=== PATIENT | female | born 2000 | race Caucasian/White ===

== ENCOUNTER 2018-06-13 17:56 | Outpatient (CLI) | payer MEDICAID ==
[2018-06-13 18:31] LABS: APPEARANCE,URINE CLOUDY; BILIRUBIN,URINE NEGATIVE (NEGATIVE); COLOR,URINE YELLOW; GLUCOSE, URINE NEGATIVE (NEGATIVE); KETONES,URINE NEGATIVE (NEGATIVE); LEUKOCYTE ESTERASE,URINE LARGE (NEGATIVE); NITRITE,URINE NEGATIVE (NEGATIVE); PROTEIN,URINE NEGATIVE (NEGATIVE); URINE SPECIFIC GRAVITY 1.018
[2018-06-13 18:47] LABS: URINE AMPHETAMINES SCREEN NEGATIVE; URINE BARBITURATES SCREEN NEGATIVE; URINE BENZODIAZEPINES SCREEN NEGATIVE; URINE COCAINE SCREEN NEGATIVE; URINE MARIJUANA (THC) SCREEN NEGATIVE; URINE METHADONE SCREEN NEGATIVE; URINE PHENCYCLIDINE SCREEN NEGATIVE
--- NOTE | 2018-06-13 19:02 | Non Stress Test Report ---
Non Stress Test Datetime Report Generated by CPN: 06/13/2018 19:02 DEMOGRAPHIC EGA NST: 39.4 INDICATION Indication for Study: Ordered by Provider MONITORING Monitor Explained: Monitor Explained; Test Explained; Patient Verbalized Understanding Time on Monitor: 06/13/2018 18:20 Time off Monitor: 06/13/2018 19:01 NST Duration: 41 NST INTERVENTIONS NST Interventions: PO Hydration; Reposition Patient Physician Notified NST: Dr. Idris BABY A: [id number] BABY A Movement : Present Contraction Frequency : rare Contraction Frequency : 0 FHR Baseline : 125 Accelerations : 15X15 Decelerations : None Variability : Moderate 6-25bpm NST Review: Meets Criteria for Reactive NST NST Review and Verified By : Vonnie Holguin RNC NST Results: Reactive NST COMMENTS NST Comments: Provider on unit, reviewed strip NST REPORT Report Trigger: Send Report
== END 2018-06-13 19:21 | disposition home or self-care (01) ==
LOC: LC 17:56
PROVIDERS: ATTEND Obstetrics & Gynecology
PROC: 4A1HXCZ Monitoring of Products of Conception, Cardiac Rate, External Approach (ICD-10-PCS; principal; 2018-06-13)
DX: O47.1 False labor at or after 37 completed weeks of gestation (principal); Z3A.39 39 weeks gestation of pregnancy
CPT/HCPCS: 59025; 80307; 81005

== ENCOUNTER 2018-06-20 11:25 | Outpatient (CLI) | payer MEDICAID | END 2018-06-20 12:26 | disposition home or self-care (01) | LOC: LC 11:25 | PROVIDERS: ATTEND Student in an Organized Health Care Education/Training Program | PROC: 4A1HXCZ Monitoring of Products of Conception, Cardiac Rate, External Approach (ICD-10-PCS; principal; 2018-06-20) | DX: O47.1 False labor at or after 37 completed weeks of gestation (principal); Z3A.40 40 weeks gestation of pregnancy | CPT/HCPCS: 59025 ==

== ENCOUNTER 2018-06-22 12:26 | Outpatient (CLI) | payer MEDICAID ==
--- NOTE | 2018-06-22 13:12 | Non Stress Test Report ---
Non Stress Test Datetime Report Generated by CPN: 06/22/2018 13:12 DEMOGRAPHIC EGA NST: 40.6 EGA NST: 40.4 INDICATION Indication for Study: Ordered by Provider Indication for Study: Ordered by Provider Indication for Study (NST) Other: lc MONITORING Monitor Explained: Monitor Explained; Test Explained; Patient Verbalized Understanding Monitor Explained: Monitor Explained; Test Explained; Patient Verbalized Understanding Time on Monitor: 06/22/2018 12:35 Time on Monitor: 06/20/2018 11:33 Time off Monitor: 06/22/2018 13:11 Time off Monitor: 06/20/2018 12:16 NST Duration: 36 NST Duration: 43 NST INTERVENTIONS NST Interventions: PO Hydration NST Interventions: PO Hydration Physician Notified NST: Dr Shaker Physician Notified NST: Carlos Reece CNM BABY A: [id number] BABY A Movement : Present Movement : Present Contraction Frequency : 0 Contraction Frequency : irregular FHR Baseline : 115 FHR Baseline : 125 Accelerations : 15X15 Accelerations : 15X15 Decelerations : None Decelerations : None Variability : Moderate 6-25bpm Variability : Moderate 6-25bpm NST Review: Meets Criteria for Reactive NST NST Review: Meets Criteria for Reactive NST NST Review and Verified By : Vonnie Holguin RNC NST Review and Verified By : KALEE Cope NST Results: Reactive NST Results: Reactive NST REPORT Report Trigger: Send Report
== END 2018-06-22 14:36 | disposition home or self-care (01) ==
LOC: LC 12:26
PROVIDERS: ATTEND Obstetrics & Gynecology
PROC: 4A1HXCZ Monitoring of Products of Conception, Cardiac Rate, External Approach (ICD-10-PCS; principal; 2018-06-22)
DX: Z34.93 Encounter for supervision of normal pregnancy, unspecified, third trimester (principal)
CPT/HCPCS: 59025

== ENCOUNTER 2018-06-23 03:40 | Inpatient (IN) | payer MEDICAID ==
[2018-06-23] MEDS ORDERED: MISOPROSTOL 0.2 MG TABLET ONE (03:57)
[2018-06-23] MEDS ORDERED: LIDOCAINE 1% INJ-PF (10 MG/ML) 30 ML SDV ONE (03:57)
[2018-06-23] MEDS ORDERED: OXYTOCIN/NORMAL SALINE 20 UNIT/1,000 ML RTUINJ ONE (03:58)
[2018-06-23] MEDS ORDERED: RINGERS SOLUTION,LACTATED 1,000 ML IV PRN (04:03)
[2018-06-23] MEDS ORDERED: FENTANYL CITRATE INJ/PF 100 MCG/2 ML AMPUL ONE (04:35)
[2018-06-23 05:26] LABS: HEMATOCRIT 36.2 % (36.0-47.0); HEMOGLOBIN 12.3 g/dL (12.0-15.5); MEAN CORPUSCULAR HEMOGLOBIN 28.5 pg (27.0-33.4); MEAN CORPUSCULAR VOLUME 84 fl (80-97); PLATELET COUNT 165 10^3/uL (150-450); RED BLOOD COUNT 4.31 10^6/uL (3.72-5.28); RED CELL DISTRIBUTION WIDTH 13.5 % (11.5-14.0); WHITE BLOOD COUNT 22.6 10^3/uL (4.0-10.5)
--- NOTE | 2018-06-23 05:36 | HISTORY AND PHYSICAL E ---
History and Physical NAME: LOYD DELANEY : 2000 AGE: 17Y ADMITTED: 06/23/2018 ROOM: LR200 HISTORY OF PRESENT ILLNESS: A 17-year-old, 1, at 41 weeks gestational age who presented to triage with the chief complaint of contractions, rupture of membranes, and onset of labor. Upon examination, she was completely dilated and she was moved to a labor and delivery bed. She reports good movement. PAST OBSTETRICAL HISTORY: 1 current. No high-risk indications for her. PAST MEDICAL HISTORY: None. PAST SURGICAL HISTORY: None. MEDICATIONS: Just vitamins. ALLERGIES: THE PATIENT IS ALLERGIC TO PENICILLIN. SOCIAL HISTORY: No smoking, drinking, or illicit drug use. PHYSICAL EXAMINATION: VITAL SIGNS: Stable. Afebrile, normotensive, not tachy initially on presentation. GENERAL: The patient awake and alert, oriented x3, in moderate distress due to labor. CARDIAC: Regular rate and rhythm. LUNGS: Clear to auscultation bilaterally. ABDOMEN: Gravid. VAGINAL EXAM: Completely dilated, completely effaced, and +1 to +2 station. EXTREMITIES: DTRs are 1+. No clonus. No cyanosis. No edema. 2+ pulses bilaterally. ASSESSMENT AND PLAN: A 17-year-old, 1, at 41 weeks in labor, status post spontaneous rupture of membranes. 1. Admit to Labor and Delivery. 2. Anticipate spontaneous vaginal delivery. DICTATING PHYSICIAN: Nanette Huizar MD [id number] PHY#: [id number] ID: [id number] JOB#: [id number] ACCT: [id number] cc:Nanette Huizar >
--- NOTE | 2018-06-23 05:46 | OPERATIVE REPORT E ---
Operative Report NAME: LOYD DELANEY : 2000 AGE: 17Y DATE OF SURGERY: 06/23/2018 ROOM: LR200 OPERATION: Normal spontaneous vaginal delivery. SURGEON: Nanette Huizar COMPLICATIONS: None. ESTIMATED BLOOD LOSS: 350 FINDINGS: Viable male in a vertex cephalic presentation, Apgars 8 and 9, weight 6 pounds 5 ounces. PROCEDURE: The patient had an uneventful normal spontaneous vaginal delivery of a full-term viable male . She had a right focal tear, then first-degree, that was reapproximated with 3-[address]-1, on the left periurethral tear that was reapproximated with 3-0 Vicryl on an SH. Reapproximation was performed successfully and there was no bleeding from those repair sites. Lochia was minimal, with a firm fundus at the end. There was a nuchal cord x1 as well. The patient tolerated the procedure well. Sponge, lap, and needle counts were correct x2. DICTATING PHYSICIAN: Nanette Huizar MD [id number] PHY#: [id number] ID: [id number] JOB#: [id number] ACCT: [id number] cc:Nanette Huizar >
[2018-06-23 05:50] LABS: ABSOLUTE LYMPHOCYTES# (MANUAL) 1.1 10^3/uL (0.5-4.7); ABSOLUTE MONOCYTES # (MANUAL) 0.9 10^3/uL (0.1-1.4); ABSOLUTE NEUTROPHILS# (MANUAL) 20.6 10^3/uL (1.7-8.2); BASOPHILS % (MANUAL) 0 % (0-2); EOSINOPHILS % (MANUAL) 0 % (0-6); LYMPHOCYTES % (MANUAL) 2 % (13-45); MONOCYTES % (MANUAL) 4 % (3-13); SEGMENTED NEUTROPHILS % (MAN) 91 % (42-78); TOTAL CELLS COUNTED 100
[2018-06-23 05:57] LABS: BURR CELLS SLIGHT; PLATELET COMMENT ADEQUATE; POIKILOCYTOSIS 1+; ROULEAUX SLIGHT; TEAR DROP CELLS SLIGHT
[2018-06-23 06:39] LABS: APPEARANCE,URINE TURBID; BILIRUBIN,URINE NEGATIVE (NEGATIVE); COLOR,URINE RED; GLUCOSE, URINE 50 mg/dL (NEGATIVE); KETONES,URINE 20 mg/dL (NEGATIVE); LEUKOCYTE ESTERASE,URINE NEGATIVE (NEGATIVE); NITRITE,URINE NEGATIVE (NEGATIVE); PROTEIN,URINE >=500 mg/dL (NEGATIVE); URINE SPECIFIC GRAVITY 1.023; UROBILINOGEN,URINE NEGATIVE mg/dL (<2.0)
[2018-06-23 07:15] LABS: URINE AMPHETAMINES SCREEN NEGATIVE; URINE BARBITURATES SCREEN NEGATIVE; URINE BENZODIAZEPINES SCREEN NEGATIVE; URINE COCAINE SCREEN NEGATIVE; URINE MARIJUANA (THC) SCREEN NEGATIVE; URINE METHADONE SCREEN NEGATIVE; URINE PHENCYCLIDINE SCREEN NEGATIVE
[2018-06-23] MEDS ORDERED: DIBUCAINE 1% OINTMENT 28 GM TP PRN (10:04)
[2018-06-23] MEDS ORDERED: MEASLES,MUMPS&RUBELLA VACC/PF 0.5 ML VIAL SUBCUT PRN (10:04)
[2018-06-23] MEDS ORDERED: NA PHOS,M-B/NA PHOS,DI-BA (ADULT) 133 ML ENEMA PR PRN (10:04)
[2018-06-23] MEDS ORDERED: PROMETHAZINE HCL 25 MG SUPP.RECT PR PRN (10:04)
[2018-06-23] MEDS ORDERED: PROMETHAZINE HCL INJ 25 MG/1 ML VIAL IV PRN (10:04)
[2018-06-23] MEDS ORDERED: ZOLPIDEM TARTRATE 5 MG TABLET PO PRN (10:04)
[2018-06-23] MEDS ORDERED: DIPHENHYDRAMINE HCL 25 MG CAPSULE PO PRN (10:04)
[2018-06-23] MEDS ORDERED: ACETAMINOPHEN 650 MG SUPP.RECT PR PRN (10:04)
[2018-06-23] MEDS ORDERED: DIPH/PERTUSS(ACELL)/TETANUS VAC/PF 0.5 ML SYR (>=10YO) IM PRN (10:04)
[2018-06-23] MEDS ORDERED: BENZOCAINE/MENTHOL AEROSOL SPRAY 56 ML TOP PRN (10:04)
[2018-06-23] MEDS ORDERED: GLYCERIN/WITCH HAZEL LEAF 1 EACH MED..PAD TP PRN (10:04)
[2018-06-23] MEDS ORDERED: PSEUDOEPHEDRINE HCL 30 MG TABLET PO PRN (10:04)
[2018-06-23] MEDS ORDERED: MAGNESIUM HYDROXIDE SUSP 30 ML UDCUP PO PRN (10:04)
[2018-06-23] MEDS ORDERED: PROMETHAZINE HCL 25 MG TABLET PO PRN (10:04)
[2018-06-23] MEDS ORDERED: ACETAMINOPHEN WITH CODEINE #3 TABLET PO PRN ×2 (10:04)
--- NOTE | 2018-06-23 10:26 | PDOC PROGRESS REPORT ---
Subjective-OB Progress Note for:: 06/23/18 Subjective: Doing well, no c/o, family at [place], taking care of baby, bottle feeding Physical Exam (OB) Vital Signs: Temp Pulse Resp BP Pulse Ox 98.3 F 79 18 132/76 H 97 06/23/18 06:41 06/23/18 06:41 06/23/18 06:41 06/23/18 07:04 06/23/18 06:41 Intake & Output 06/22/18 06/23/18 06/24/18 06:59 06:59 06:59 Intake Total 1000 Balance 1000 Weight 81.6 kg - PIH/Pre-Eclampsia Clonus: Negative Headache: Absent Epigastric Pain: No Visual Changes: No - Lochia Lochia Amount: Small 10-25 ml Lochia Color: Rubra/Red - Abdomen Description: Tender, Soft Hernia Present: No Fundal Description: Firm, Midline Fundal Height: u/u - u/2 Objective-Diagnostic Laboratory: 06/23/18 05:13 06/23/18 06/23/18 06/23/18 05:13 05:13 06:16 WBC 22.6 H RBC 4.31 Hgb 12.3 Hct 36.2 MCV 84 MCH 28.5 MCHC 34.0 RDW 13.5 Plt Count 165 Seg Neutrophils % Not Reportable Lymphocytes % Not Reportable Monocytes % Not Reportable Eosinophils % Not Reportable Basophils % Not Reportable Absolute Neutrophils Not Reportable Absolute Lymphocytes Not Reportable Absolute Monocytes Not Reportable Absolute Eosinophils Not Reportable Absolute Basophils Not Reportable Urine Color RED Urine Appearance TURBID Urine pH 6.0 Ur Specific Bradshaw 1.023 Urine Protein >=500 H Urine Glucose (UA) 50 H Urine Ketones 20 H Urine Blood LARGE H Urine Nitrite NEGATIVE Ur Leukocyte Esterase NEGATIVE Blood Type B POSITIVE Antibody Screen NEGATIVE Assessment and Plan(PN) - Assessment and Plan (1) Normal vaginal delivery Is this a current diagnosis for this admission?: Yes - Time Spent with Patient Time with patient: Less than 15 minutes Medications reviewed and adjusted accordingly: Yes - Disposition Anticipated Discharge: Home Within: within 24 hours
[2018-06-23] MEDS: IBUPROFEN 800 MG TABLET PO SCH ×2 (13:19→22:06)
[2018-06-23] MEDS: DOCUSATE SODIUM 100 MG CAPSULE PO SCH (17:20)
[2018-06-23] MEDS: FERROUS SULFATE 325 MG TABLET PO SCH (17:20)
[2018-06-23] MEDS: FAMOTIDINE 20 MG TABLET PO SCH (22:06)
[2018-06-24] MEDS: IBUPROFEN 800 MG TABLET PO SCH ×3 (06:01→21:19)
[2018-06-24 07:13] LABS: HEMATOCRIT 33.5 % (36.0-47.0); HEMOGLOBIN 11.3 g/dL (12.0-15.5); MEAN CORPUSCULAR HEMOGLOBIN 28.5 pg (27.0-33.4); MEAN CORPUSCULAR HGB CONC 33.7 g/dL (32.0-36.0); MEAN CORPUSCULAR VOLUME 85 fl (80-97); PLATELET COUNT 150 10^3/uL (150-450); RED BLOOD COUNT 3.96 10^6/uL (3.72-5.28); RED CELL DISTRIBUTION WIDTH 13.5 % (11.5-14.0); WHITE BLOOD COUNT 12.3 10^3/uL (4.0-10.5)
[2018-06-24] MEDS: SENNOSIDES/DOCUSATE 8.6-50 MG 1 EACH TABLET PO SCH (10:06)
[2018-06-24] MEDS: FAMOTIDINE 20 MG TABLET PO SCH ×2 (10:06→21:19)
[2018-06-24] MEDS: DOCUSATE SODIUM 100 MG CAPSULE PO SCH ×2 (10:07→17:19)
[2018-06-24] MEDS: FERROUS SULFATE 325 MG TABLET PO SCH ×2 (10:07→17:19)
[2018-06-24] MEDS: PRENATAL VITAMIN W DHA CAPSULE PO SCH (10:07)
--- NOTE | 2018-06-24 13:28 | PDOC PROGRESS REPORT ---
Subjective-OB Progress Note for:: 06/24/18 Subjective: reports bleeding slowing, pain controlled with current meds, denies needs Physical Exam (OB) Vital Signs: Temp Pulse Resp BP Pulse Ox 97.5 F 63 15 132/83 H 98 06/24/18 08:10 06/24/18 08:10 06/24/18 08:10 06/24/18 08:10 06/24/18 08:10 Intake & Output 06/23/18 06/24/18 06/25/18 06:59 06:59 06:59 Intake Total 1000 350 Balance 1000 350 Weight 81.6 kg - Abdomen Description: Soft, Round Hernia Present: Yes Fundal Description: Firm, Midline Fundal Height: u/u - u/2 - Abdominal Distension: No distension Tenderness: Nontender - Extremities Lower extremities: Colton's sign - neg Calf: Normal, Nontender Objective-Diagnostic Laboratory: 06/24/18 06:34 06/24/18 06:34 WBC 12.3 H RBC 3.96 Hgb 11.3 L Hct 33.5 L MCV 85 MCH 28.5 MCHC 33.7 RDW 13.5 Plt Count 150 Assessment and Plan(PN) - Assessment and Plan (1) Normal vaginal delivery Is this a current diagnosis for this admission?: Yes - Time Spent with Patient Time with patient: Less than 15 minutes Medications reviewed and adjusted accordingly: Yes - Disposition Anticipated Discharge: Home Within: within 24 hours
[2018-06-25] MEDS: IBUPROFEN 800 MG TABLET PO SCH (05:29)
[2018-06-25] MEDS: DOCUSATE SODIUM 100 MG CAPSULE PO SCH (10:08)
[2018-06-25] MEDS: PRENATAL VITAMIN W DHA CAPSULE PO SCH (10:08)
[2018-06-25] MEDS: FERROUS SULFATE 325 MG TABLET PO SCH (10:08)
[2018-06-25] MEDS: SENNOSIDES/DOCUSATE 8.6-50 MG 1 EACH TABLET PO SCH (10:08)
[2018-06-25] MEDS: FAMOTIDINE 20 MG TABLET PO SCH (10:08)
--- NOTE | 2018-06-25 10:18 | PDOC DISCHARGE SUMMARY ---
Final Diagnosis Discharge Date: 06/25/18 - Final Diagnosis (1) Normal course Is this a current diagnosis for this admission?: Yes (2) Normal vaginal delivery Is this a current diagnosis for this admission?: Yes Discharge Data - Discharge Medication Prescriptions: Ibuprofen [Motrin 800 mg Tablet] 800 mg PO Q8 PRN #60 tablet PRN Reason: Pain Scale Of 3 Home Medications: Ibuprofen [Motrin 800 mg Tablet] 800 mg PO Q8 PRN #60 tablet 06/25/18 Vit/Dha [ Multi + Dha Capsule] 1 cap PO DAILY capsule Reason(s) for Admission: Onset of Labor Procedures: Ultrasound Intrapartum Procedure(s): Spontaneous Vaginal Delivery Complication(s): Laceration-Perineal Laceration-Degree: 1st - Diagnosis Test Laboratory: Temp Pulse Resp BP Pulse Ox 98.0 F 67 18 125/68 98 06/25/18 08:09 06/25/18 08:09 06/25/18 08:09 06/25/18 08:09 06/25/18 08:09 06/23/18 06/23/18 06/24/18 05:13 06:16 06:34 RBC 4.31 3.96 Hgb 12.3 11.3 L Hct 36.2 33.5 L Urine Opiates Screen NEGATIVE - Discharge information/Instructions Discharge Activity: Activity As Tolerated Discharge Diet: As Tolerated, Regular Disposition: HOME, SELF-CARE Follow up with: [facility] in: Weeks
[2018-06-25 10:32] VITALS: BP 132/76
== END 2018-06-25 13:06 | disposition home or self-care (01) | DRG 807 ==
LOC: LC 03:40 → LR 04:02 → 2S 06:30
PROVIDERS: ADMIT Obstetrics & Gynecology; ATTEND Obstetrics & Gynecology
PROC: 10E0XZZ Delivery of Products of Conception, External Approach (ICD-10-PCS; principal; 2018-06-23)
PROC: 0HQ9XZZ Repair Perineum Skin, External Approach (ICD-10-PCS; 2018-06-23)
PROC: 3E0234Z Introduction of Serum, Toxoid and Vaccine into Muscle, Percutaneous Approach (ICD-10-PCS; 2018-06-25)
DX: O48.0 Post-term pregnancy (principal); Z37.0 Single live birth; O69.81X0 Labor and delivery complicated by cord around neck, without compression, not applicable or unspecified; O70.0 First degree perineal laceration during delivery; O99.214 Obesity complicating childbirth; E66.9 Obesity, unspecified; Z3A.41 41 weeks gestation of pregnancy; Z23 Encounter for immunization
CPT/HCPCS: 36415; 80307; 81005; 85025; 85027; 86592; 86850; 86900; 86901; 90715; J2590; J3010; J3490